=== PATIENT | male | born 1950 | race Caucasian/White ===

== ENCOUNTER 2017-02-01 07:39 | Day surgery (SDC) | payer OTHER ==
[~2017-02-01] VITALS: Ht 170.2 cm; Wt 70.2 kg
[~2017-02-01 07:39] MED LIST: ASACOL400 MG PO; ASPIRIN325 MG PO; BENTYL20 MG PO; BYSTOLIC5 MG PO; COMPAZINE10 MG PO; DICLOFENAC PO; DIPHEN; FLEXERIL10 MG PO; HYDROCODON-ACE1 EAC7 PO; Hydrodiuril,Oretic,E PO; KLOR-CON; LABETALOL HCL200 MG PO; LIALDA1.2 GM PO; LISINOPRIL20 MG PO; LOMOTIL TABLET1 EACH PO; MEDROL DOSEPAK4 MG PO; MELOXICAM7.5 MG PO; MULTIVITAMIN PO; PERCOCET 5/31 TABLET PO; PRILOSEC20 MG PO; TENORMIN50 MG PO; TRAMADOL HCL50 MG PO; TYLENOL REGULA325 MG PO; ZESTRIL,PRINIVI10 MG PO
== END 2017-02-01 10:00 | disposition home or self-care (01) ==
LOC: PAIN 07:39 → SDC 08:30 → PAIN 10:00
DX: M47.816 Spondylosis without myelopathy or radiculopathy, lumbar region (principal); M54.5 Low back pain; G89.29 Other chronic pain; I10 Essential (primary) hypertension; K21.9 Gastro-esophageal reflux disease without esophagitis; K50.90 Crohn's disease, unspecified, without complications; F17.210 Nicotine dependence, cigarettes, uncomplicated
CPT/HCPCS: J1030; J2250; J3010; S0020

== ENCOUNTER 2017-05-13 08:50 | Day surgery (SDC) | payer OTHER ==
[~2017-05-13] VITALS: Ht 170.2 cm; Wt 70.8 kg
[~2017-05-13 08:50] MED LIST changes: +CYANOCOBAL1000 MCG/2 IM; +LORTAB 7.5-3251 EACH PO; +VITAMIN D400 UNIT PO
== END 2017-05-13 10:25 | disposition home or self-care (01) ==
LOC: PAIN 08:50 → SDC 09:30 → PAIN 09:30
DX: M47.816 Spondylosis without myelopathy or radiculopathy, lumbar region (principal); M51.36 Other intervertebral disc degeneration, lumbar region; M51.26 Other intervertebral disc displacement, lumbar region; M48.061 Spinal stenosis, lumbar region without neurogenic claudication; I10 Essential (primary) hypertension; J44.9 Chronic obstructive pulmonary disease, unspecified; K21.9 Gastro-esophageal reflux disease without esophagitis; F17.200 Nicotine dependence, unspecified, uncomplicated; Z79.891 Long term (current) use of opiate analgesic; M54.12 Radiculopathy, cervical region; M48.02 Spinal stenosis, cervical region
CPT/HCPCS: 93005; J1030; J2250; J3010; S0020

== ENCOUNTER 2017-05-20 08:51 | Day surgery (SDC) | payer OTHER ==
[~2017-05-20] VITALS: Ht 170.2 cm; Wt 70.8 kg
== END 2017-05-20 10:28 | disposition home or self-care (01) ==
LOC: PAIN 08:51 → SDC 09:30 → PAIN 10:28
DX: M47.816 Spondylosis without myelopathy or radiculopathy, lumbar region (principal); M54.5 Low back pain; M51.36 Other intervertebral disc degeneration, lumbar region; M48.061 Spinal stenosis, lumbar region without neurogenic claudication; M51.26 Other intervertebral disc displacement, lumbar region; M54.12 Radiculopathy, cervical region; M48.02 Spinal stenosis, cervical region; I10 Essential (primary) hypertension; I73.9 Peripheral vascular disease, unspecified; J44.9 Chronic obstructive pulmonary disease, unspecified; Z79.891 Long term (current) use of opiate analgesic; F17.200 Nicotine dependence, unspecified, uncomplicated
CPT/HCPCS: J1030; J2250; J3010; S0020

== ENCOUNTER 2017-08-24 10:53 | Day surgery (SDC) | payer OTHER ==
[~2017-08-24] VITALS: Ht 170.2 cm; Wt 70.8 kg
[~2017-08-24 10:53] MED LIST changes: +BUSPAR5 MG PO; +CILOSTAZOL100 MG PO; +IMODIUM A-D2 M2 PO; +LORTAB 5-325 M1 EACH PO; -LORTAB 7.5-3251 EACH PO; +VITAMIN D33000 UNIT PO; -VITAMIN D400 UNIT PO
== END 2017-08-24 12:33 | disposition home or self-care (01) ==
LOC: PAIN 10:53 → SDC 11:15 → PAIN 11:15
PROC: 3E0R33Z Introduction of Anti-inflammatory into Spinal Canal, Percutaneous Approach (ICD-10-PCS; principal; 2017-08-24)
PROC: 3E0R3BZ Introduction of Anesthetic Agent into Spinal Canal, Percutaneous Approach (ICD-10-PCS; principal; 2017-08-24)
DX: M51.16 Intervertebral disc disorders with radiculopathy, lumbar region (principal); M47.816 Spondylosis without myelopathy or radiculopathy, lumbar region; M48.061 Spinal stenosis, lumbar region without neurogenic claudication; I73.9 Peripheral vascular disease, unspecified; I10 Essential (primary) hypertension; J44.9 Chronic obstructive pulmonary disease, unspecified; Z79.891 Long term (current) use of opiate analgesic; F17.200 Nicotine dependence, unspecified, uncomplicated
CPT/HCPCS: J1100; J2250

== ENCOUNTER 2017-10-18 09:19 | Day surgery (SDC) | payer OTHER ==
[~2017-10-18] VITALS: Ht 170.2 cm; Wt 69.9 kg
[~2017-10-18 09:19] MED LIST changes: +LABETALOL HCL100 MG PO
== END 2017-10-18 11:32 | disposition home or self-care (01) ==
LOC: PAIN 09:19
PROC: 3E0S33Z Introduction of Anti-inflammatory into Epidural Space, Percutaneous Approach (ICD-10-PCS; principal; 2017-10-18)
PROC: B01B1ZZ Fluoroscopy of Spinal Cord using Low Osmolar Contrast (ICD-10-PCS; principal; 2017-10-18)
DX: M54.16 Radiculopathy, lumbar region (principal); M51.26 Other intervertebral disc displacement, lumbar region; M51.36 Other intervertebral disc degeneration, lumbar region; M48.061 Spinal stenosis, lumbar region without neurogenic claudication; F17.200 Nicotine dependence, unspecified, uncomplicated; K50.90 Crohn's disease, unspecified, without complications; I10 Essential (primary) hypertension
CPT/HCPCS: J1100; J2250